=== PATIENT | female | born 1980 | race Caucasian/White ===

== ENCOUNTER 2025-01-18 14:38 | Emergency (ER) | payer BC ==
[~2025-01-18] VITALS: Ht 175.3 cm; Wt 93.9 kg
[2025-01-18 14:43] VITALS: TEMP 98.6
--- NOTE | 2025-01-18 14:51 | Physician Documentation ---
History of Present Illness ~ Chief Complaint: Allergic Reaction Stated Complaint: ALLERGIC REACTION TO SOMETHING Time Seen by MD: 14:46 HPI Patient is a 44-year-old female that presents to the emergency department today for evaluation of what appears to be an allergic reaction x3 days. [place] she acutely developed swelling around her eyes and mouth. Patient denies any airway involvement ever but does report that they swelling was significant and painful. Reports that the swellin g felt like burning. In addition to the swelling around her eyes and her lips, patient reports she has had sporadic areas of swelling in her extremities also. Patient denies any family history of angioedema or any hyper mast cell responses. In his unaware of any immune mediated familial issues at this time. Medication Reconciliation Allergies: Coded Allergies: No Known Allergies (Unverified , 01/18/25) Review of Systems All Other Systems at this time: Reviewed and Negative ROS As stated above in the HPI, otherwise all systems are reviewed and negative. Physical Exam Vital Signs: Temperature: 98.6, Source: Temporal, Heart Rate: 76, Respiratory Rate: 15, BP: 116/83, Pulse Oximetry: 100, Weight: 93.900 Physical Exam VITALS: Reviewed and as above. GENERAL: Alert, no apparent distress. HEENT: Normocephalic, atraumatic, PERRL, EOMI, dry mucosa, no erythema RESPIRATORY: Lungs clear, normal breath sounds, no respiratory distress. CHEST: No accessory muscle use, no retractions CV: Regular rate, rhythm, no edema, no murmur, No: JVD GI: Soft, non-tender, bowels sounds present, no rebound, guarding, or rigidity BACK: No CVA tenderness, or swelling MUSCULOSKELETAL No deformities, no edema SKIN: Warm and dry, edema around bilaterally, [id number] edema in the lips and cheeks, area of edema noted on patient's right hand, area on face noted to be mildly erythematous. NEURO: Oriented x4, No motor or sensory deficit PSYCH: Normal mood and affect, no agitation Progress Results/Orders Results/Orders Completed Orders - CHASTITY SALAS Methylprednisolone Sod Succ (Solumedrol (01/18/25 15:10) Diphenhydramine Capsule (Benadryl Capsul (01/18/25 16:00) Ibuprofen Tablet (Motrin Tablet) (01/18/25 16:00) Medications Received in ER Medications (Trade) Dose Ordered Sig/Mp Route PRN Reason Start Time Stop Time Status Last Admin Dose Admin (SoluMEDROL 125mg inj) 125 mg ONCE ONCE IM 01/18/25 15:10 01/18/25 15:29 DC 01/18/25 15:41 125 MG (Benadryl capsule) 50 mg ONCE ONCE PO 01/18/25 16:00 01/18/25 16:01 DC 01/18/25 17:28 50 MG (Motrin tablet) 800 mg ONCE ONCE PO 01/18/25 16:00 01/18/25 16:01 DC 01/18/25 17:28 800 MG Vital Signs 01/18/25 01/18/25 14:43 17:33 Temp 98.6 Pulse 76 Resp 15 B/P (MAP) 116/83 Pulse Ox 100 Medical Decision Making Findings his patient presents with symptoms consistent with acute hypersensitivity reaction, likely acute allergic reaction. Presentation not consistent with acute anaphylaxis (lack of pulmonary, dermatologic, cardiovascular or GI symptoms, lack of hypotension or exposure to known allergen), serum sickness (no recent drug exposure, lacks fevers, arthralgias). Considered angio-edema based on presenation and hx of events x 3. No evidence of airway compromise or shock at this time. Patient improved with H1/H2 linda, steroids. No need for ep inephrine. Prescribed patient EpiPen Rx, and patient to keep food diary, and to follow up with PMD for allergy testing. Differential Diagnosis Angio-edema, allergic reaction, Departure Disposition: HOME / SELF CARE / HOMELESS Impression: Primary Impression: Acute allergic reaction Condition: Stable Referrals: NO PRIMARY CARE PROVIDER (PCP) Prescriptions Epinephrine (Epipen 2-Jose) 0.3 Mg/0.3 Ml Auto.injct 1 SYR IM ONCE for Allergic reaction for 1 Day, #1 PKT 0 Refills Prov: CHASTITY SALAS 01/18/25 Education Educated: Patient, Family Educated regarding: diagnosis, treatment, need for follow up Signature Scribe Signature: . Attestation: Scribed for Chastity Salas by MIRANDA Galvan . 01/18/25 18:00 CHASTITY SALAS Jan 18, 2025 14:51
[2025-01-18] MEDS: ibuprofen tablet 400 MG TABLET PO ONE (17:28)
[2025-01-18] MEDS ORDERED: EPIN0.3P3 IM (17:59)
[2025-01-18 18:18] VITALS: BP 123/89; PULSE 86; RESP 16; O2SAT 99
== END 2025-01-18 18:20 | disposition home or self-care (01) ==
LOC: ER 14:39
DX: T78.49XA Other allergy, initial encounter (principal); X58.XXXA Exposure to other specified factors, initial encounter
CPT/HCPCS: 96372; 99283; J2919; Q0163